=== PATIENT | female | born 1950 | race Caucasian/White ===

== ENCOUNTER → 2018-04-27 07:24 | Outpatient (CLI) | payer BC ==
[2014-12-24 08:57] VITALS: BMI 31.2
[~2018-04-27 07:24] MED LIST: DIOVAN HCT 320/1 TA2 PO; KLONOPIN0.5 MG PO; PLAVIX75 MG PO; PRILOSEC20 MG PO; SONATA10 MG PO
== END | disposition home or self-care (01) ==
LOC: D.CT 07:24
DX: R10.32 Left lower quadrant pain (principal)

== ENCOUNTER 2018-08-17 07:55 | Day surgery (SDC) | payer BC ==
[2018-08-16 14:30] LABS: BASOPHILS 0.5 % (0-2); EOSINOPHILS 1.5 % (0-7); HEMATOCRIT 40.6 % (36.0-48.0); HEMOGLOBIN 13.6 g/dL (12-16); IMMATURE GRANULOCYTES 0.2 % (0-5); LYMPHOCYTES 25.1 % (15-50); MCH 27.8 pg (26.0-34.0); MCHC 33.5 g/dL (31.0-37.0); MEAN PLATELET VOLUME 10.5 fL (7.4-10.4); MONOCYTES 4.7 % (2-11); PLATELET COUNT 313 10x3/uL (130-400); RBC 4.89 10x6/uL (4.00-5.40); RDW 15.1 % (11.5-14.5)
[2018-08-16 14:41] LABS: CALC OSMOLALITY 281 mosm/kg (275-300); CALCIUM 8.7 mg/dL (8.5-10.1); CARBON DIOXIDE 28.1 mmol/L (21.0-32.0); CHLORIDE - SERUM 104 mmol/L (98-107); CREATININE - SERUM 0.8 mg/dL (0.6-1.3); GLUCOSE 117 mg/dL (74-106); POTASSIUM - SERUM 3.6 mmol/L (3.5-5.1); SODIUM 141 mmol/L (136-145); UREA NITROGEN 13 mg/dL (7-18); eGFR NON AFRICAN AMERICAN 76 mL/min (90-120)
[~2018-08-17] VITALS: Ht 170.2 cm; Wt 79.8 kg
--- NOTE | ~2018-08-17 | OP ---
PATIENT NAME: SELINA GUIDRY MEDICAL RECORD: [id number] :50 LOCATION:D.[facility] ADMISSION DATE: SURGEON: MICAH HER MD DATE OF OPERATION: 08/17/2018 PREOPERATIVE DIAGNOSES: 1. Chronic left lower quadrant pain. 2. Hypertension. 3. Arthritis. POSTOPERATIVE DIAGNOSES: 1. Chronic left lower quadrant pain. 2. Hypertension. 3. Arthritis. PROCEDURE: Laparoscopic lysis of adhesions with diagnostic laparoscopy. SURGEON: Micah Her MD REPORT OF PROCEDURE: The patient's abdomen was prepped and draped in sterile fashion. A Veress needle was inserted in the left upper quadrant and the abdomen was insufflated. A 5-mm Visiport trocar was inserted in the left lateral abdomen just above the level of the umbilicus. Once we entered the abdominal cavity, the Veress needle could be seen and there was no sign of any injury to bowel or surrounding structures. Another 5-mm trocar was placed in the midline under direct visualization and a final 5-mm trocar was placed in the left lower quadrant laterally. The patient's left lower quadrant was the area of chronic pain. Inspection there showed some adhesions of the sigmoid colon to the inferior aspect of the peritoneum. These adhesions were taken down with electrocautery and blunt dissection. As we moved towards the pelvis, there was a wall of adhesions of the abdominal fatty tissue to the anterior abdominal wall. These were taken down using electrocautery until we had these completely freed up. The patient's cecum and right colon extended down into the pelvis, and there were some adhesions of this to the lateral wall. These were taken down using electrocautery until this portion appeared to be in normal anatomic position. Deep in the pelvis, there was a single band of adhesions of the small bowel to the left lateral pelvic wall. This was a thick band of adhesions. It was taken down using electrocautery. Once we did this, then the small bowel was free flowing. We ran the small bowel from the terminal ileum to the ligament of Treitz, and outside of one single layer of thin bands, the remainder of the small bowel was free. So, the pelvis and bilateral lower quadrants were free of any adhesions at this point. The rectum was freely mobile with no signs of any masses, lesions, or inflammatory changes. The patient's appendix was surgically absent. As we looked in the upper abdomen, the omentum was adherent to the anterior abdominal wall and the falciform. Using electrocautery, we took down this band of adhesions freeing up the omentum to lie down over the abdomen. There was no sign of any hernia defect in the upper abdomen from a previous open cholecystectomy incision or down in the pelvis from any of her previous incisions or in the inguinal region. At this point, the ports and insufflation were then removed. The wounds were infused with 10 mL of 0.25% Marcaine with epinephrine and then closed with subcutaneous 5-0 Monocryl. COMPLICATIONS: None. CONDITION: Stable. OPERATIVE REPORT [id number] SELINA GUIDRY ANESTHESIA: General endotracheal and local. BLOOD LOSS: Minimal. TRANSINT:[id number] Voice Confirmation ID: [id number] DOCUMENT ID: [id number] MICAH HER MD at 1219 CC: JAY GARCIA DO and CALE HOBSON DO [id number] DICTATION DATE: 08/17/18 1347 NET APPLICATION ARCHITECT: 08/17/18 1421 [facility] 08/17/18 [facility] [address] [place] [address]
[~2018-08-17 07:55] MED LIST changes: +COZAAR100 MG PO; +GABAPENTIN100 MG PO
[2018-08-17 09:53] VITALS: BP 104/68; Ht 170.2 cm; Wt 79.8 kg
[2018-08-17] MEDS ORDERED: NORCO 10-325 TA1 TAB PO (13:32)
== END 2018-08-17 18:50 | disposition home or self-care (01) ==
LOC: D.OPS 07:55
PROVIDERS: Surgery
DX: K66.0 Peritoneal adhesions (postprocedural) (postinfection) (principal); I10 Essential (primary) hypertension; M19.90 Unspecified osteoarthritis, unspecified site; Z01.812 Encounter for preprocedural laboratory examination

== ENCOUNTER 2018-10-22 09:24 | Outpatient (CLI) | payer BC ==
[~2018-10-22] VITALS: Ht 170.2 cm; Wt 78.0 kg
--- NOTE | ~2018-10-22 | HEMODYNAMI ---
PATIENT:SELINA GUIDRY MEDICAL RECORD: [id number] : 50 LOCATION:VI ADMISSION DATE: 10/22/18 Generatedon:10/22/201816:57 Patient name: SELINA GUIDRY Patient #: [id number] SSN: : 1950 Date of study: 10/22/2018 Page: Of Hemodynamic Procedure Report Patient Data Patient Demographics Procedure consent was obtained First Name: SELINA Gender: Female Last Name: BREA : 1950 Middle Initial: TI Age: 68 year(s) Patient #: [id number] Race: Unknown Additional ID: [id number] Contact details [address]: [address] [place] [address] [place] State: [place] City: [place] Zip code: [address] Admission Admission Data Admission Date: 10/22/2018 Admission Time: 9:24 Admit Source: Emergency department Procedure Procedure Types Cath Procedure Diagnostic Procedure LHC LH w/Coronaries Sedation Charges Moderate Sedation up to 15 minutes Procedure Description Procedure Date Procedure Date: 10/22/2018 Procedure Start Time: 16:44 Procedure End Time: 16:55 Procedure Staff Name Function Hoa Olson MD Ordering physician Javier Martínez MD Performing Physician David Quiles RT Monitor Leslie Kaur RT Scrub Rosa Toscano RN Nurse Tatiana Davis RT Monitor Procedure Data Cath Procedure Fluoroscopy Diagnostic fluoroscopy Total fluoroscopy Time: 1.4 time: 1.4 min min Diagnostic fluoroscopy Total fluoroscopy dose: 258 dose: 258 mGy mGy Contrast Material Contrast Material Type Amount (ml) Isovue 300 45 Entry Location Entry Primary Successful Side Size Upsize Upsize Entry Closure Succes sful Closure Location (Fr) 1 (Fr) 2 (Fr) Remarks Device Remarks Femoral Right 5 Fr Exoseal artery Estimated blood loss: 5 ml Diagnostic catheters Device Type Used For End Catheter Placement MULTIPACK JL 4.0 5Fr Left Coronary catheter Angiography MULTIPACK 3DRC 5Fr Right Coronary catheter Angiography MULTIPACK Pigtail 5 Fr LV Angiography catheter Procedure Complications No complications Procedure Medications Medication Administration Route Dosage Oxygen etCO2 Nasal cannula 2 l/min Heparin Flush Bag added to field 2 bags (1000units/500ml NS) 0.9% NaCl I.V. 100 ml/hr Lidocaine 2% added to field 20 Fentanyl I.V. 50 mcg Versed I.V. 1 mg Fentanyl I.V. 50 mcg Versed I.V. 1 mg Fentanyl I.V. 50 mcg Fentanyl I.V. 50 mcg Hemodynamics Rest Heart Rate: 71 (bpm) Pressure Samples Time Site Value (mmHg) Purpose Heart Use Rate(bpm) 16:52 LV 196/-2,22 Snapshot 69 Gradients Valve Time Site Site Mean SEP/DFP Peak To Heart Use 1 2 (mmHg) (sec/min) Peak Rate (mmHg) (bpm) Aortic 16:53 LV AO 66 Snapshots Pre Cath Intra NCS Post Cath Vital Signs Time Heart Resp SPO2 etCO2 NIBP (mmHg) Rhythm Pain Sedation Rate (ipm) (%) (mmHg) Status Level (bpm) 16:34:21 72 16 100 34.4 209/96(144) NSR 0 (11) 10(A) , No pain 16:39:01 63 16 96 35.1 172/85(123) NSR 0 (11) 10(A) , No pain 16:43:36 59 17 96 35.9 176/83(138) NSR 0 (11) 10(A) , No pain 16:48:04 54 17 99 38.9 156/76(117) NSR 0 (11) 9(A) , No pain 16:52:32 69 17 95 40.4 170/86(114) NSR 0 (11) 9(A) , No pain 16:57:15 57 11 98 39.6 160/76(123) NSR 0 (11) 9(A) , No pain Medications Time Medication Route Dose Verified Delivered Reason Notes Effe ctiveness by by 16:30:01 Oxygen etCO2 2 Javier Rosa Per Nasal l/min Mauricio Toscano physician cannula RN 16:30:10 Heparin Flush added 2 Javier Rosa used for Bag to bags Mauricio Toscano procedure (1000units/500ml field RN NS) 16:30:33 0.9% NaCl I.V. 100 Javier Rosa Per ml/hr Mauricio Toscano physician RN 16:30:58 Lidocaine 2% added 20ml Javier Rosa used for to vial Mauricio Toscano procedure field RN 16:44:30 Fentanyl I.V. 50 Javier Rosa for mcg Mauricio Toscano sedation RN 16:44:37 Versed I.V. 1 mg Javier Rosa for Mauricio Toscano sedation RN 16:46:34 Fentanyl I.V. 50 Javier Rosa for mcg Mauricio Toscano sedation RN 16:46:39 Versed I.V. 1 mg Javier Rosa for Mauricio Toscano sedation RN 16:49:48 Fentanyl I.V. 50 Javier Rosa for mcg Mauricio Toscano sedation RN 16:51:10 Fentanyl I.V. 50 Javier Rosa for mcg Mauricio Toscano sedation continuous pickling line pickler Log Time Note 16:16:27 Informed consent obtained and on chart 16:16:31 Admit Source: Emergency department 16:16:44 Diagnostic Cath status Elective 16:16:46 David Quiles RT(R) sent for patient. Start room use. 16:16:47 Time tracking: Regular hours (M-F 7:00 - 5:00) 16:16:49 Plan of Care:Hemodynamics will remain stable., Cardiac rhythm will remain stable., Comfort level will be maintained., Respiratory function will remain adequate., Patient/ family verbilizes understanding of procedure., Procedure tolerated without complication., Recovers from procedure without complications.. 16:16:54 H&P Date Dictated: 10/22/2018 Within 30 days and on chart.. 16:25:26 Patient received from Med II to CCL 1 Alert and oriented. Tansferred to table in Supine position. 16:25:35 Correct patient and procedure confirmed by team. 16:25:37 ECG and BP/O2 sat monitors applied to patient. 16:25:42 Warm blankets applied, and jurgen hugger turned on for patient comfort. 16:30:01 Oxygen 2 l/min etCO2 Nasal cannula was administered by Rosa Toscano RN; Per physician; 16:30:10 Heparin Flush Bag (1000units/500ml NS) 2 bags added to field was administered by Rosa Toscano RN; used for procedure; 16:30:33 0.9% NaCl 100 ml/hr I.V. was administered by Rosa Toscano RN; Per physician; 16:30:58 Lidocaine 2% 20ml vial added to field was administered by Rosa Toscano RN; used for procedure; 16:31:43 Baseline sample Acquired. 16::47 Rhythm: sinus rhythm 16::49 Full Disclosure recording started 16::49 Pre-procedure instructions explained to patient. 16:31:50 Pre-op teaching completed and patient verbalized understanding. 16:31:51 Family in waiting room. 16:31:54 Patient NPO since Midnight. 16:31:56 Is the patient allergic to Iodine/contrast media? No. 16:31:57 Was the patient premedicated? No 16:31:58 Is patient on blood thinner?No 16:31:59 Patient diabetic? No. 16:32:01 Previous problem with sedation/anesthesia? No ? 16:41:02 Snore? Yes 16:41:03 Sleep apnea? No 16:41:05 Deviated septum? No 16:41:06 Opens mouth fully? Yes 16:41:07 Sticks out tongue? Yes 16:41:09 Airway obstruction? No ? 16:41:14 Dentures? No ? 16:41:17 Pre procedure: right dorsailis pedis pulse 2+ Normal; easily identifiable; not easily obliterated 16:41:19 Pre procedure: left dorsailis pedis pulse 2+ Normal; easily identifiable; not easily obliterated 16:41:21 Patient pain scale 0/10 ?. 16:41:46 IV patent on arrival in right antecubital with 0.9% NaCl at [facility]. 16:41:48 Lab results completed and on chart. 16:41:54 Right groin area was prepped with chlora-prep and draped in sterile fashion 16:41:55 Alarms reviewed by R. N. 16:41:56 Sharps counted by scrub and verified by R.N. 16:41:58 Physician arrived 16:41:59 --------ALL STOP TIME OUT------ 16:41:59 Final Timeout: patient, procedure, and site verified with staff and physician. All members of the team are in agreement. 16:42:07 Right Radial & Right Groin site verified by team. 16:42:16 Physical assessment completed. ASA score P 2 - A patient with mild systemic disease as per Javier Martínez MD. 16:42:20 Sedation plan: IV Moderate Sedation Medication:Versed, Fentanyl 16:42:23 Zero performed for pressure channel P1 16:43:51 Procedure started. 16:44:00 Local anesthetic to right femoral artery with Lidocaine 2% by Javier Martínez MD.INITIAL ACCESS ONLY 16:44:26 A 5 Fr sheath was inserted into the Right Femoral artery 16:44:30 Fentanyl 50 mcg I.V. was administered by Rosa Tsocano RN; for sedation; 16:44:37 Versed 1 mg I.V. was administered by Rosa Toscano RN; for sedation; 16:46:34 Fentanyl 50 mcg I.V. was administered by Rosa Toscano RN; for sedation; 16:46:39 Versed 1 mg I.V. was administered by Rosa Toscano RN; for sedation; 16:47:49 Use device set Femoral Dx 16:47:50 ACIST Syringe (26895) opened to sterile field. 16:47:50 Bag Decanter (2002S) opened to sterile field. 16:47:51 Medline Cath Pack ([id number]) opened to sterile field. 16:47:51 DIAGNOSTIC WIRE .035 260cm J wire ([id number]) opened to sterile field. 16:47:52 ACIST Hand Control (16430) opened to sterile field. 16:47:52 ACIST Manifold (16522) opened to sterile field. 16:47:53 DIAGNOSTIC Multipack 5Fr catheter set ([id number]) opened to sterile field. 16:47:53 Tegaderm 4 x 4 (1626W) opened to sterile field. 16:47:55 SHEATH 5FR Concord ([id number]) opened to sterile field. 16:48:02 A MULTIPACK JL 4.0 5Fr catheter was advanced over the wire and used for Left Coronary Angiography. 16:48:43 LCA angiography performed. 16:48:50 Injector settings: Ml/sec: 3, Volume: 6, 16:49:34 Catheter removed. 16:49:41 A MULTIPACK 3DRC 5Fr catheter was advanced over the wire and used for Right Coronary Angiography. 16:49:48 Fentanyl 50 mcg I.V. was administered by Rosa Toscano RN; for sedation; 16:51:00 RCA angiography performed. 16:51:04 Injector settings: Ml/sec: 3, Volume: 6, 16:51:10 Fentanyl 50 mcg I.V. was administered by Rosa Toscano RN; for sedation; 16:51:35 Catheter removed. 16:51:41 A MULTIPACK Pigtail 5 Fr catheter was advanced over the wire and used for LV Angiography. 16:52:50 LV hemodynamics recorded. 16:52:52 LV gram done using GARZA 16:52:55 Injector settings: Ml/sec: 5, Volume: 15, 16:53:27 EF : 55 % 16:53:42 Catheter removed. 16:53:44 EXOSEAL 5Fr (EX500) opened to sterile field. 16:53:54 Sheath removed intact; hemostasis achieved with Exoseal to the Right Femoral artery. 16:54:01 Procedure ended.(Physican Out) 16:54:10 Fluoroscopy time 01.40 minutes. 16:54:14 Fluoroscopy dose: 258 mGy 16:54:14 Flurop Dose total: 258 16:54:20 Contrast amount:Isovue 300 45ml. 16:54:22 Sharps counted by scrub and verified by R.N. 16:54:25 Insertion/operative site no bleeding no hematoma. 16:54:28 Post-op/insertion site Right Femoral artery dressed using a 4 x 4 and Tegaderm. 16:54:31 Post right femoral artery:stable 16:54:33 Post Procedure Pulses reassessed and unchanged 16:54:36 Post procedure rhythm: unchanged. 16:54:39 Estimated blood loss: 5 ml 16:54:41 Post procedure instruction explained to patient.Patient verbalizes understanding. 16:54:42 Patient needs reinforcement of post procedure teaching. 16:54:51 Procedure type changed to Cath procedure, Diagnostic procedure, LHC, LHC w/Coronaries, Sedation Charges, Moderate Sedation up to 15 minutes 16:54:52 Procedure and supply charges have been captured, reviewed, submitted and are correct. 16:54:57 Procedure Complication : No complications 16:54:59 Vital chart was stopped 16:55:00 See physician's report for complete and final results. 16:55:22 Report given to Pre/Post Procedure Room. 16:55:25 Patient transfered to Pre/Post Procedure Room with Stretcher. 16:55:28 Procedure ended. 16:55:28 Full Disclosure recording stopped 16:55:31 End room use (Document Last) Device Usage Item Name Manufacture Quantity Catalog Hospital Part Current Minimal L ot# / Number Charge Number Stock Stock Serial# Code ACIST Acist 1 88096 623220 035287 189091 20 Syringe Medical (12494) Systems Inc Bag Microtek 1 2001S 605519 29257 845059 5 Decanter Medical Inc. () Medline Medline 1 [id number] 235498 43778 063928 5 Cath Pack ([id number]) DIAGNOSTIC St Ryley 1 566591 974834 618478 621232 30 WIRE .035 260cm J wire (073006) ACIST Hand Acist 1 53582 323101 390271 321045 5 Control Medical (33661) Systems Inc ACIST Acist 1 41616 651989 066596 329148 5 Manifold Medical (92286) Systems Inc DIAGNOSTIC Cardinal 1 UN6245 370232 34457 051229 30 Multipack Health 5Fr catheter set (YW0575) Tegaderm 4 3M 1 1626W 135443 137426 325815 5 x 4 (1626W) SHEATH 5FR Terumo 1 [id number] 021137 861717 488387 5 Concord (ZGR453) MULTIPACK Cardinal 1 659608 5 JL 4.0 5Fr Health catheter MULTIPACK Cardinal 1 840796 5 3DRC 5Fr Health catheter MULTIPACK Cardinal 1 127123 5 Pigtail 5 Health Fr catheter EXOSEAL 5Fr Cardinal 1 EX500 338237 183942 828594 10 (EX500) Health Signature Audit [place] Stage Time Signature Unsigned Intra-Procedure 10/22/2018 Tatiana Davis 4:57:55 PM RT(R) Signatures Monitor : David Quiles RT Signature : Date : Time : Monitor : Tatiana Davis RT Signature : Date : Time : [facility] [address] [place] [id number]
[~2018-10-22 09:24] MED LIST changes: +NORCO 10-325 TA1 TAB PO
[2018-10-22 09:26] VITALS: Ht 170.2 cm; Wt 78.0 kg
[2018-10-22 10:05] LABS: BASOPHILS 0.5 % (0-2); EOSINOPHILS 2.2 % (0-7); HEMATOCRIT 41.6 % (36.0-48.0); HEMOGLOBIN 13.7 g/dL (12-16); IMMATURE GRANULOCYTES 0.2 % (0-5); LYMPHOCYTES 29.8 % (15-50); MCH 27.2 pg (26.0-34.0); MCHC 32.9 g/dL (31.0-37.0); MCV 82.5 fL (80.0-100.0); MEAN PLATELET VOLUME 10.9 fL (7.4-10.4); MONOCYTES 4.8 % (2-11); NEUTROPHILS 62.5 % (40-80); PLATELET COUNT 289 10x3/uL (130-400); RBC 5.04 10x6/uL (4.00-5.40); RDW 14.4 % (11.5-14.5); WBC 9.5 10x3/uL (4.8-10.8)
[2018-10-22 10:11] LABS: ALBUMIN 3.5 g/dL (3.4-5.0); ALKALINE PHOSPHATASE 144 U/L (46-116); ALT (SGPT) 28 U/L (10-68); BILIRUBIN - TOTAL 0.24 mg/dL (0.2-1.3); CALC OSMOLALITY 286 mosm/kg (275-300); CALCIUM 8.7 mg/dL (8.5-10.1); CHLORIDE - SERUM 105 mmol/L (98-107); GLUCOSE 90 mg/dL (74-106); POTASSIUM - SERUM 3.6 mmol/L (3.5-5.1); PROTEIN - SERUM 7.5 g/dL (6.4-8.2); SODIUM 143 mmol/L (136-145); UREA NITROGEN 17 mg/dL (7-18); eGFR NON AFRICAN AMERICAN 58 mL/min (90-120)
[2018-10-22 10:22] LABS: CKMB 0.3 U/L (0.0-3.6); CREATINE KINASE 36 UL (21-215); MAGNESIUM - SERUM 2.2 mg/dL (1.8-2.4); PRO BNP 138 pg/mL (0-125); TROPONIN-I < 0.017 ng/mL (0.000-0.060)
[2018-10-22 16:23] VITALS: BP 155/78
--- NOTE | 2018-10-22 17:20 | NUR ---
DR REYES HAS ROUNDED. PT DENIES ANY C/O. DRESSING IS CDI TO RIGHT GROIN WITH NO BLEEDING OR HEMATOMA NOTED. HOB IS FLAT. VSS. PO FLUIDS AT BEDSIDE.
--- NOTE | 2018-10-22 17:41 | NUR ---
DRESSING CDI TO RIGHT GROIN, AREA IS SOFT AND NONTENDER. PEDAL PULSES PALPABLE. HOB IS FLAT. SINUS TED AT 48, DENIES ANY C/O CHEST PAIN. BP IS 134/60. CALL LIGHT IN REACH.
[2018-10-22] MEDS ORDERED: CARDIZEM120 MG PO (17:47)
--- NOTE | 2018-10-22 18:14 | NUR ---
HOB ELEVATED 30 DEGREES, DRESSING REMAINS CDI, PULSES PALPABLE. VSS. DENIES ANY C/O. AT BEDSIDE.
--- NOTE | 2018-10-22 18:21 | NUR ---
DC INSTRUCTIONS REVIEWED WITH PT AND SPOUSE WHO VERBALIZE UNDERSTANDING. PT IS ALERT AND DENIES ANY C/O. SINUS TED AT 50, DENIES ANY C/O CHEST PAIN.
--- NOTE | 2018-10-22 18:41 | NUR ---
1830 HOB FULLY ELEVATED, DRESSING CDI, PULSES PALPABLE. PT IS ALERT AND DENIES ANY C/O. HAS TOLERATED SANDWICH AND SODA WITH NO NAUSEA.
--- NOTE | 2018-10-22 19:03 | NUR ---
185 DRESSING CDI TO RIGHT GROIN, AREA IS SOFTA ND NONTENDER. PEDAL PULSES PALPABLE. IV DC'D WITH CATH INTACT AND PT IS DRESSING FOR DC WITH ASSIST. 1899 ASSISTED PT TO THE BATHROOM VIA WC AND VOIDED QS. PT ESCORTED TO PRIVATE AUTO VIA WC BY NURSE WITH DRIVING HER HOME.
== END 2018-10-22 19:00 | disposition home or self-care (01) ==
LOC: D.CATH 09:24 → D.ER 09:24 → EDSTATUS 11:09 → D.CATH 19:00
PROVIDERS: Family Medicine
DX: R07.9 Chest pain, unspecified (principal); R94.31 Abnormal electrocardiogram [ECG] [EKG]; I10 Essential (primary) hypertension

== ENCOUNTER → 2019-12-05 19:20 | Outpatient (CLI) | payer BC ==
[~2019-12-05 19:20] MED LIST changes: +CARDIZEM120 MG PO
== END | disposition home or self-care (01) ==
LOC: D.MAMMO 14:30
PROVIDERS: ATTEND Family Medicine
DX: Z12.31 Encounter for screening mammogram for malignant neoplasm of breast (principal)